=== PATIENT | female | born 1970 | race Caucasian/White ===

== ENCOUNTER 2019-03-19 06:33 | Day surgery (SDC) | payer BC, OTHER ==
[2019-03-19] MEDS ORDERED: Sodium Chloride 0.9% 10 ML ONE (06:44)
[2019-03-19] MEDS ORDERED: Sodium Tetradecyl Sulfate 1% 20 MG/2 ML SDV ONE (06:44)
[2019-03-19] MEDS ORDERED: Lidocaine 1% with EPINEPHrine 1:100,000 50 ML MDV ONE (06:44)
[2019-03-19] MEDS ORDERED: Sodium Chloride 0.9% 1,000 ML IV SCH (07:00)
[2019-03-19] MEDS ORDERED: fentaNYL 100 MCG/2 ML SDV ONE (07:24)
[2019-03-19] MEDS ORDERED: Propofol 200 MG/20 ML SDV ONE ×3 (07:24→08:28)
[2019-03-19] MEDS ORDERED: Midazolam 1 MG/ML 2 ML SDV ONE (07:24)
[2019-03-19] MEDS: Lidocaine 1% w/EPINEPHrine 50 ML, Sodium Bicarbonate 5 MEQ in Sodium Chloride 0.9% 950 ML INJECT SCH ×2 (08:02→08:20)
--- NOTE | 2019-03-19 10:48 | OR ---
DATE OF PROCEDURE: 03/19/2019 SURGEON: Jeremy Carlos MD PROCEDURES: 1. Radiofrequency ablation of left greater saphenous vein. 2. Radiofrequency ablation of right greater saphenous vein. 3. Sclerotherapy of left leg, multiple. 4. Sclerotherapy, right leg, multiple. 5. Compression wrap, left leg (81388). 6. Compression wrap, right leg (03042). COMPLICATIONS: None. CARE MANAGER CNA: None. PREOPERATIVE DIAGNOSIS: Venous insufficiency with inflammation and pain. POSTOPERATIVE DIAGNOSIS: Venous insufficiency with inflammation and pain. RISKS: Risks, benefits, alternatives, and limitations including, but not limited to infection, bleeding, and DVT formation were explained to the patient and wished to proceed. PROCEDURE IN DETAIL: The patient was placed in supine position. The left greater saphenous vein was accessed at the level of the ankle first. This was accessed using a 21-gauge needle, exchanged for a 35,000th wire, then exchanged for a 7-[place] sheath. The RFA probe was advanced to greater than 3 cm from the saphenofemoral junction. Tumescent fluid was injected in a 1-cm jacket around this and verified a second and a third time. Direct even pressure was held as the probe was deployed x2 proximally and distally, and x1 in all other segments. The sheath and device were then removed. The Dermabond was then applied. The opposite, right, leg was then performed in a same manner, same fashion, same technique in the same sequence using the same equipment. Sclerotherapy was then performed to left and right legs using 0.33% sodium tetradecyl. There were 4 on the right and 5 on the left. They ranged in size from 1 to 7 cm. No more than 2 mL was injected in one location. This was always drawn back to ensure intravascular injection only. Two-layer, two-stage compression wrapping was then performed in a distal to proximal gradient in 20 mmHg pressure. This was done in a [id number] fashion. The patient tolerated the procedure well. Jeremy Carlos MD /[id number]
== END 2019-03-19 09:39 | disposition home or self-care (01) ==
LOC: JP.SDS 06:33
PROVIDERS: ATTEND Surgery
DX: I83.12 Varicose veins of left lower extremity with inflammation (principal); I83.11 Varicose veins of right lower extremity with inflammation; I83.813 Varicose veins of bilateral lower extremities with pain; J45.30 Mild persistent asthma, uncomplicated; Z88.6 Allergy status to analgesic agent; Z79.899 Other long term (current) drug therapy
CPT/HCPCS: 36471; 36475; J1642; J2250; J2704; J3010; J7030; J3490